=== PATIENT | female | born 1965 | race Caucasian/White ===

== ENCOUNTER → 2018-10-22 09:27 | Outpatient (CLI) | payer MEDICAID ==
--- NOTE | ~2018-10-22 | ST ---
PATIENT:MICHAEL CASTILLO MEDICAL RECORD: [id number] SEX: F LOCATION:[facility] ORDER #: ADMISSION DATE: 10/22/18 AGE OF PATIENT: 53 REFERRING PHYSICIAN: INTERPRETING PHYSICIAN: RYAN PEREZ MD DATE OF SERVICE: 10/22/2018 PROCEDURE: Nuclear stress test. INDICATION: Angina, abnormal ECG, shortness of breath, hypertension, hyperlipidemia. She was exercised on standard Lexiscan protocol with 33 mCi of sestamibi injected at peak stress, 11 mCi were used previously for rest images. FINDINGS: Gated SPECT reveals preserved ejection fraction at 60% with good wall motion and thickening and brightening throughout all segments. SPECT imaging Cardiolite was used as myocardial fusion agent. There is homogeneous uptake throughout all segments at rest and stress with no evidence of inducible ischemia or previous infarction. OVERALL IMPRESSION: 1. This is a normal nuclear stress test with no evidence of inducible ischemia or previous infarction. 2. Gated SPECT reveals a preserved ejection fraction at 60%. In this patient with ongoing symptomatology, the current scan does not suggest the presence of hemodynamically significant coronary artery disease. Evaluate noncardiac etiology of chest pain. TRANSINT:[id number] Voice Confirmation ID: [id number] DOCUMENT ID: [id number] RYAN PEREZ MD at 1228 CC: JOHN LYNN MD [id number] DICTATION DATE: 10/23/[address] MONITOR: 10/24/18 0704 DEP CLI 10/22/18 [place] [id number]
== END | disposition home or self-care (01) ==
LOC: D.HCCARDIO 09:27
DX: I20.9 Angina pectoris, unspecified (principal)

== ENCOUNTER 2018-11-21 18:40 | Inpatient (IN) | payer MEDICAID ==
[~2018-11-21] VITALS: Ht 167.6 cm; Wt 131.8 kg
--- NOTE | 2018-11-21 22:17 | NUR ---
PT REPORTS IV IS BLEEDING TO LEFT AC. IV DC AND RESITED.
[2018-11-21 22:30] VITALS: BP 124/56
--- NOTE | 2018-11-21 22:43 | NUR ---
DR. BOWLING CALLED AND ORDERED THAT PATIENT CAN TAKE HER NIGHT TIME DOSE OF PSYCHIATRIC MEDICINES
--- NOTE | 2018-11-21 23:51 | NUR ---
RECIEVED TO ROOM 2124 FROM ER VIA W.C. PT A&O. RESPERATIONS EVEN AND NON LABORED ON RA. IV TO RIGHT HAND WITH AMIODERONE INFUSING AT 1 MG/MIN. IV SITE CLEAN AND DRY. VITALS STABLE. HISTORY AND MED REC COMPLETE. PLACED ON TELEMETRY, 68 SR PER MT. PT DENIES PAIN OR NEEDS AT THIS TIME, BED LOW, CL IN REACH.
[2018-11-21] MEDS ORDERED: ZOCOR20 MG PO (23:57)
[2018-11-21] MEDS ORDERED: ZYLOPRIM100 MG PO (23:57)
[2018-11-21] MEDS ORDERED: KLONOPIN1 MG PO (23:58)
[2018-11-21] MEDS ORDERED: AMBIEN10 MG PO (23:59)
[2018-11-21] MEDS ORDERED: GEODON80 MG PO (23:59)
[2018-11-21] MEDS ORDERED: LITHIUM CARBON300 MG PO (23:59)
[2018-11-22] MEDS ORDERED: NORVASC10 MG PO
[2018-11-22] MEDS ORDERED: REXULTI1 MG PO (00:01)
[2018-11-22] MEDS ORDERED: PROPRANOLOL HCL20 MG PO (00:01)
--- NOTE | 2018-11-22 01:14 | NUR ---
RT AT BED SIDE TO ASSIST WITH C PAP.
[2018-11-22 04:00] VITALS: BP 139/68
--- NOTE | 2018-11-22 04:06 | NUR ---
RN NOTE: PATIENT APPEARS TO BE SLEEPING. RESPIRATIONS ARE EVEN AND UNLABORED. NO S/S OF DISTRESS. NO C/O PAIN. CALL LIGHT WITHIN REACH. WILL CPOC.
--- NOTE | 2018-11-22 04:22 | NUR ---
RESTING ON LEFT SIDE, RESPERTIONS EVEN, NO S/S DISTRESS NOTED.
[2018-11-22 04:46] VITALS: BP 135/84; Ht 167.6 cm; Wt 131.8 kg
[2018-11-22 06:31] LABS: BASOPHILS 0.3 % (0-2); EOSINOPHILS 2.4 % (0-7); HEMATOCRIT 37.2 % (36.0-48.0); HEMOGLOBIN 12.3 g/dL (12-16); IMMATURE GRANULOCYTES 0.3 % (0-5); LYMPHOCYTES 26.2 % (15-50); MCH 31.3 pg (26.0-34.0); MCHC 33.1 g/dL (31.0-37.0); MCV 94.7 fL (80.0-100.0); MEAN PLATELET VOLUME 10.1 fL (7.4-10.4); MONOCYTES 6.2 % (2-11); NEUTROPHILS 64.6 % (40-80); PLATELET COUNT 327 10x3/uL (130-400); RBC 3.93 10x6/uL (4.00-5.40); RDW 13.9 % (11.5-14.5); WBC 9.4 10x3/uL (4.8-10.8)
[2018-11-22 06:49] LABS: ALBUMIN 3.1 g/dL (3.4-5.0); ANION GAP 12.2 mmol/L (8-16); BILIRUBIN - TOTAL 0.26 mg/dL (0.2-1.3); CALCIUM 8.5 mg/dL (8.5-10.1); CARBON DIOXIDE 27.4 mmol/L (21.0-32.0); CREATININE - SERUM 0.9 mg/dL (0.6-1.3); POTASSIUM - SERUM 3.6 mmol/L (3.5-5.1); PROTEIN - SERUM 6.7 g/dL (6.4-8.2)
--- NOTE | 2018-11-22 07:30 | NUR ---
AM ROUNDS COMPLETED. INTRODUCED MYSELF TO PT PRIMARY RN FOR TODAYS SHIFT. PT IS A&O SITTING UP IN BED RESTING QUIETLY. AT BEDSIDE ROUNDING AND STATES SHE IS IN NORMAL SINUS RHYTHYM AND HE WILL DISCUSS WITH HER PREVIOUS ERGONOMICS CONSULTANT AND SEE PLANNING FOR NEW MEDICATION AND IF SHE REMAINS NORMAL SINUS RHYTHYM SHE CAN PROBABLY DISCHARGE LATER THIS AFTERNOON. PT VERBALIZED UNDERSTANDING AND DENIES ANY QUESTIONS OR CONCERNS. CL IN REACH, BED IN LOWEST, SIDE RAILS X2. WILL CTM.
[2018-11-22 07:52] VITALS: BP 122/65
--- NOTE | 2018-11-22 09:46 | NUR ---
PROVIDED PT WITH ORAL FORM OF CARDIZEM TEACHING PROVIDED ITS A NEW MEDICATION FOR PT. PT SITTING UP ON SIDE OF BED RESTING QUIETLY. IF PTS HEART RATE AND RHYTHYM REMAIN NORMAL WE WILL D/C AMIODARONE DRIP. PT VERBALIZED UNDERSTANDING AND DENIES ANY QUESTIONS OR CONERNS. WILL CTM.
--- NOTE | 2018-11-22 11:14 | NUR ---
PT C/O SEVERE THROBBING HEADACHE AND STATES IT WONT GO AWAY. PROVIDED PT WITH TYLENOL AND SHE STATES "IT WONT HELP, IT DIDNT WORK LAST NIGHT" TOLD PT SHE NEEDS TO AT LEAST TRY TO LET IT WORK. SHE VERBALIZED UNDERSTANDING. NO CURRENT NEEDS. WILL CTM.
--- NOTE | 2018-11-22 11:44 | NUR ---
D/C PTS AMIODARONE DRIP SHE IS DOING GOOD ON THE ORAL PILL GIVEN AND STAYING IN A SINUS RHYTHYM @69BPM. PT IS C/O HER HEADACHE NOT RELIEVED WITH TYLENOL WILL PAGE PRIMARY AND REQUEST SOMETHING TO HELP HER.
[2018-11-22] MEDS ORDERED: CARDIZEM CD120 MG PO (13:15)
--- NOTE | 2018-11-22 13:18 | NUR ---
D/C PTS R.HAND PIV WITH CATHETER TIP FULLY INTACT. REMOVED TELEMETRY AND RETURNED TO [facility]. PT HAS CALLED HER SON FOR TRANSPORTATION. WILL DO DISCHARGE PT SHORTLY. NO CURRENT NEEDS.
--- NOTE | 2018-11-22 13:38 | NUR ---
DISCHARGE TEACHING PROVIDED AND PAPERS SIGNED. PT VERBALIZED UNDERSTANDING AND DENIES ANY QUESTIONS OR CONCERNS. CL IN REACH. WAITING ON HER RIDE.
[2018-11-22 14:01] VITALS: BP 130/71
--- NOTE | 2018-11-22 15:11 | NUR ---
PT HAS ALL BELONGINGS AND RIDE IS HERE. PT NOW LEAVING.
--- NOTE | 2018-11-22 17:57 | MORECARE ---
CASE MANAGEMENT DISCHARGE SUMMARY PATIENT: MICHAEL CASTILLO UNIT: [id number] ADM DATE: 11/21/18 AGE: 53 : 65 SEX: F ROOM/BED: D.2354 AUTHOR: KEVIN KHALIL PHYSICIAN: REFERRING PHYSICIAN: MUNIR BOWLING M.D. DATE OF SERVICE: 11/22/18 Discharge Plan Patient Name: MICHAEL CASTILLO Facility: [facility]:[place] : 1965 Planned Disposition: Home Anticipated Discharge Date: 11/22/18 Discharge Date: 11/22/2018 Expected LOS: 1 Initial Reviewer: [email or web address] Initial Review Date: 11/22/2018 Generated: 11/22/18 6:57 pm Patient Name: MICHAEL CASTILLO Page [id number] at 1756 All edits/amendments must be made on the electronic document DICTATION DATE: 11/22/181756 MOTOR VEHICLE REPRESENTATIVE: MELONIE 11/22/181756 RPT#: [id number] DC DATE:11/22/18 STATUS: DIS IN [facility] [address] [place] [address] END OF REPORT
== END 2018-11-22 15:12 | disposition home or self-care (01) | DRG 310 ==
LOC: D.ER 18:40 → D.EDHOLD 19:18 → D.M2 19:18
PROVIDERS: Family Medicine; ADMIT Internal Medicine Cardiovascular Disease
DX: I48.91 Unspecified atrial fibrillation (principal); I10 Essential (primary) hypertension; E78.5 Hyperlipidemia, unspecified; J44.9 Chronic obstructive pulmonary disease, unspecified; G47.33 Obstructive sleep apnea (adult) (pediatric); F31.9 Bipolar disorder, unspecified

== ENCOUNTER → 2019-07-21 10:47 | Outpatient (CLI) | payer MEDICAID ==
[2018-11-22 04:46] VITALS: BMI 46.9
[~2019-07-21 10:47] MED LIST: AMBIEN10 MG PO; CARDIZEM CD120 MG PO; GEODON80 MG PO; KLONOPIN1 MG PO; LITHIUM CARBON300 MG PO; NORVASC10 MG PO; PROPRANOLOL HCL20 MG PO; REXULTI1 MG PO; ZOCOR20 MG PO; ZYLOPRIM100 MG PO
--- NOTE | 2019-07-23 11:58 | EC ---
PATIENT:MICHAEL CASTILLO DATE OF SERVICE: 07/21/19 SEX: F MEDICAL RECORD: [id number] DATE OF : 65 [facility] AGE OF PATIENT: 54 ADMISSION DATE: 07/21/19 REFERRING PHYSICIAN: INTERPRETING PHYSICIAN: LATA AYALA MD ECHOCARDIOGRAM REPORT ECHO CHARGES 4 ECHO COMPLETE Date: 07/21/19 CLINICAL DIAGNOSIS: HX CHF/HTN/AFB, ASSESS EF AND VALVES ECHOCARDIOGRAPHIC MEASUREMENTS (adult normal given) AC root (d.<3.7cm) 3.0 cm LV Septum d (<1.2 cm> 1.6 cm Valve Excursion 1.4 cm LV Septum (systole) 1.8 cm Left Atria (s.<4.0cm> 4.7 cm LVPW d(<1.2cm) 1.5 cm RV (d.<2.3cm) 3.0 cm LVPW (sytole) 1.8 cm LV diastole(<5.6CM) 4.2 cm MV E-F(>70mm/sec) cm LV systole 3.0 cm LVOT Diameter 1.7 cm MV exc.(>10mm) 1.4 cm Est.ejection fraction (50-75%) % DOPPLER: LVIT cm/sec A 81.0 cm/sec E 93.0 cm/sec LA cm/sec RVSP 18 mmHg LVOT 115 cm/sec AOP1/2T m/s Asc. Ao 180 cm/sec RVOT 107 cm/sec RA cm/sec PA 140 cm/sec AV Gradient Peak 12.97mmHg AV Mean 6.59 mmHg AV Area 1.4 cm MV Gradient Peak 5.78 mmHg MV Mean 2.28 mmHg MV Area cm COMMENTS: Electric Motor Repairer: Efraín CARTER Cotton Baler: 3 Dr. Buitrago TAPE# PACS Pericardial Effusion N DATE OF SERVICE: 07/21/2019 Adequate 2D, color flow imaging, spectral Doppler, and M-Mode Mild LVH. LV internal dimension is normal. Wall motion is normal. EF is greater than or equal to 55%. Aortic valve is tricuspid. No evidence of stenosis by Doppler interrogation. Left atrium is dilated at 4.7 cm. Mitral valve shows no prolapse. Trace MR. Right-sided chambers are grossly normal. Mild TR. ECHOCARDIOGRAM REPORT [id number] MICHAEL CASTILLO TRANSINT:[id number] Voice Confirmation ID: [id number] DOCUMENT ID: [id number] LATA AYALA MD at 1158 CC: [id number] DICTATION DATE: 07/22/19 1322 CLINICAL PSYCHOLOGIST: 07/22/19 1525 [facility] CLI 07/21/19 [place] [id number] [place] [id number]
== END | disposition home or self-care (01) ==
LOC: D.HCCECHO 10:47 → D.HCCARDIO 11:00
PROVIDERS: ATTEND Internal Medicine Interventional Cardiology
DX: I50.9 Heart failure, unspecified (principal)